=== PATIENT | male | born 1990 | race Caucasian/White ===

== ENCOUNTER 2016-11-09 14:09 | Emergency (ER) | payer SELFPAY ==
[2016-11-09 14:16] VITALS: BP 150/87
[2016-11-09] MEDS ORDERED: MOTRIN PO ONE (18:14)
[2016-11-09] MEDS ORDERED: NORCO 5/325 PO ONE (19:00)
--- NOTE | 2016-11-09 19:00 | Emergency Department Report ---
ED Lower Extremity HPI - General Chief Complaint: Extremity Injury, Lower Stated Complaint: KNEE PAIN Time Seen by Provider: 11/09/16 18:12 Source: patient Mode of arrival: Ambulatory Limitations: No Limitations - History of Present Illness Initial Comments: 25-year-old male past medical history anterior cruciate ligament repair left knee presents with complaint of knee pain status post twisting motion while at work. Patient states that as he was pushing a cart/dacia made twisting motion with his left D and experienced pain in knee. Patient denies fevers or chills patient is ambulatory but has antalgic gait secondary to pain. MD Complaint: knee injury Onset/Timin -: days(s) Injury: Knee: Right Place: work Severity: moderate Severity scale (0 -10): 6 Improves With: cold therapy, immobilization Worsens With: nothing, weight bearing, movement, palpation Associated Symptoms: swelling, able to partially bear weight, ambulatory - Related Data Previous Rx's Medication Instructions Recorded Last Taken Type Acetaminophen/Codeine [Tylenol 1 tab PO Q6H PRN #20 tab 11/09/16 Unknown Rx /Codeine # 3 tab] Naproxen [Naprosyn TAB] 500 mg PO BID PRN #30 tablet 11/09/16 Unknown Rx Allergies Allergy/AdvReac Type Severity Reaction Status Date / Time No Known Allergies Allergy Unverified 11/09/16 14:13 ED Review of Systems ROS: Stated complaint: KNEE PAIN Other details as noted in HPI Constitutional: denies: chills, fever Eyes: denies: eye pain, eye discharge, vision change ENT: denies: ear pain, throat pain Respiratory: denies: cough, shortness of breath, wheezing Cardiovascular: denies: chest pain, palpitations Endocrine: no symptoms reported Gastrointestinal: denies: abdominal pain, nausea, diarrhea Genitourinary: denies: urgency, dysuria Musculoskeletal: as per HPI. denies: back pain, joint swelling, arthralgia Skin: denies: rash, lesions Neurological: denies: headache, weakness, paresthesias Psychiatric: denies: anxiety, depression Hematological/Lymphatic: denies: easy bleeding, easy bruising ED Past Medical Hx - Past Medical History Previous Medical History?: No - Surgical History Past Surgical History?: Yes Additional Surgical History: ACL sgy - Social History Smoking Status: Never Smoker Substance Use Type: None - Medications Home Medications: Home Medications Medication Instructions Recorded Confirmed Last Taken Type Acetaminophen/Codeine [Tylenol 1 tab PO Q6H PRN #20 tab 11/09/16 Unknown Rx /Codeine # 3 tab] Naproxen [Naprosyn TAB] 500 mg PO BID PRN #30 tablet 11/09/16 Unknown Rx ED Physical Exam - General Limitations: No Limitations General appearance: alert, in no apparent distress - Head Head exam: Present: atraumatic, normocephalic - Eye Eye exam: Present: normal appearance, PERRL, EOMI - ENT ENT exam: Present: mucous membranes moist - Neck Neck exam: Present: normal inspection, full ROM - Respiratory Respiratory exam: Present: normal lung sounds bilaterally. Absent: respiratory distress - Cardiovascular Cardiovascular Exam: Present: regular rate, normal rhythm. Absent: systolic murmur, diastolic murmur, rubs, gallop - GI/Abdominal GI/Abdominal exam: Present: soft, normal bowel sounds - Rectal Rectal exam: Present: deferred - Extremities Exam Extremities exam: Present: normal inspection - Expanded Lower Extremity Exam Left Knee exam: Present: full ROM, swelling (visible external swelling left knee, visible scars from anterior cruciate ligament repair), pain/laxity with valgus, pain/laxity with varus (pain with various and valgus movements), full knee extension (patient is able to fully extend the left knee and flex the left knee) Lower Leg exam: Present: normal inspection, full ROM Neuro vascular tendon exam: Present: no vascular compromise (distal dorsalis pedis and posterior tibial pulses strong and intact) Gait: Positive: antalgic 1 - Pain left anterior knee - Back Exam Back exam: Present: normal inspection, full ROM - Neurological Exam Neurological exam: Present: alert, oriented X3, CN II-XII intact, normal gait - Psychiatric Psychiatric exam: Present: normal affect, normal mood - Skin Skin exam: Present: warm, dry, intact, normal color. Absent: rash ED Course Vital Signs 11/09/16 14:14 Temperature 98 F Pulse Rate 78 Respiratory 16 Rate Blood Pressure 150/87 O2 Sat by Pulse 100 Oximetry ED Lower Extremity MDM - Medical Decision Making A/P: Left knee pain 1-possible meniscus injury 2-naproxen and acetaminophen No. 3 when necessary, RICE therapy 3-f/u with orthopedics. Patient states he has a well-established orthopedic physician. 4- patient already has a knee immobilizer, patient is ambulatory with knee immobilizer without significant difficulty. Critical care attestation.: If time is entered above; I have spent that time in minutes in the direct care of this critically ill patient, excluding procedure time. ED Disposition Clinical Impression: Knee pain, left Qualifiers: Chronicity: acute Qualified Code(s): M25.562 - Pain in left knee Disposition: - TO HOME OR SELFCARE Is pt being admited?: No Does the pt Need Aspirin: No Condition: Stable Instructions: Knee Effusion (ED), Knee Pain (ED), Arthralgia (ED) Prescriptions: Acetaminophen/Codeine [Tylenol /Codeine # 3 tab] 1 tab PO Q6H PRN #20 tab PRN Reason: Pain Naproxen [Naprosyn TAB] 500 mg PO BID PRN #30 tablet PRN Reason: Pain Referrals: [facility] [Provider Group] - 3-5 Days ELLIE PICKETT MD [Staff Physician] - 3-5 Days Forms: Work/School Release Form(ED)
--- NOTE | 2016-11-09 19:44 | XRay Report ---
FINAL REPORT EXAM: XR KNEE 3V LT HISTORY: left knee pain . ACL surgery 2 years ago with no current injury. TECHNIQUE: AP, oblique, and lateral views of the left knee PRIORS: None. FINDINGS: Evidence for prior ACL surgery is noted with screw tracts identified in the distal femur and proximal tibia. No acute fracture or dislocation is seen. The soft tissues are unremarkable with no evidence for suprapatellar joint effusion. Joint spaces are maintained and bony mineralization is normal. IMPRESSION: No acute abnormality of the left knee.
== END 2016-11-09 20:15 | disposition home or self-care (01) ==
LOC: ED 14:09
DX: M25.562 Pain in left knee (principal)
CPT/HCPCS: 99283